=== PATIENT | male | born 1970 | race Two or more races ===

== ENCOUNTER 2016-08-18 14:35 | Emergency (ER) | payer MEDICAID ==
[~2016-08-18] VITALS: Ht 167.6 cm; Wt 77.1 kg
[~2016-08-18 14:35] MED LIST: ALBUTEROL SULF8.5 GM INH; HYDROCODON-ACE1 EAC4 ORAL; IBUPROFEN600 MG ORAL; LEVAQUIN500 MG PO
[2016-08-18 15:07] VITALS: BP 129/79
--- NOTE | 2016-08-18 15:16 | Emergency Room Report ---
History of Present Illness General Chief Complaint: Skin Rash/Abscess Source: Patient Present Illness HPI 46-year-old male presents emergency department complaining of itchy swollen rash x1 week. Patient states he has been applying, and motion and he has taken 3 tablets of hydroxyzine which was prescribed to him last year for itching. Patient states he believes that he may have come in contact with poison luis as he works in the [employer] yard and [place]. Patient states that rash is only confined to the upper extremities in the left side of his neck which seem to be exposed during work day. Patient denies wheezing, shortness of breath swelling of the lips or time. Patient states it she is his main concern and that he is constantly scratching at his skin is swollen. He denies discharge, increased temperature palpation, fevers, chills abdominal pain , joint pain or ill contacts. He states he is otherwise relatively healthy and does not take medication regularly. Denies CP, Palpitations, LOC, AMS, dizziness, Changes in Vision, Sensation, paresthesias, or a sudden severe headache. Allergies: Coded Allergies: PENICILLINS (Verified Allergy, 07/29/12) Patient History Past Medical History: see triage record Past Surgical History: none Pertinent Family History: none Immunizations: UTD Reviewed Nursing Documentation: PMH: Agreed, PSxH: Agreed Nursing Documentation-PM Past Medical History: No History, Except For Review of Systems All Other Systems: negative except mentioned in HPI Physical Exam Vital Signs Date Time Temp Pulse Resp B/P Pulse Ox O2 Delivery O2 Flow Rate FiO2 08/18/16 15:03 99.1 74 16 129/79 95 Room Air Sp02 EP Interpretation: reviewed, normal General Appearance: no apparent distress, alert, GCS 15, non-toxic Head: normocephalic, atraumatic Eyes: bilateral eye PERRL, bilateral eye normal inspection ENT: hearing grossly normal, normal pharynx, no angioedema, normal voice, other - no swelling of the lips or tongue, no oral lesions Neck: full range of motion, supple/symm/no masses Respiratory: chest non-tender, lungs clear, normal breath sounds, no wheezing, speaking full sentences Cardiovascular #1: regular rate, rhythm, no edema, normal capillary refill Musculoskeletal: back normal, gait/station normal, normal range of motion, non- tender Neurologic: alert, oriented x3, responsive, motor strength/tone normal, sensory intact, speech normal Psychiatric: judgement/insight normal, memory normal, mood/affect normal Skin: normal color, warm/dry, well hydrated, rash - swollen plaques and papules on the bilateral forearms, and on the left side of the neck, no crusting , no particular pattern, no increased temperature to palpation, obvious excoriations. Lymphatic: no adenopathy Medical Decision Making PA Attestation Dr. Wells is my supervising Physician whom patient management has been discussed with. Diagnostic Impression: Primary Impression: Rash and other nonspecific skin eruption ER Course Pt. presents to the ED c/o rash on bilateral UE and left side of neck x 1 week. - works in [employer], and in forest obtaining the lumbar. rash confined to exposed areas of skin. no relief from calamine lotion, and three tablets of hydroxyzine. Ddx considered but are not limited to cellulitis, scabies, shingles, varicella, dermatitis, urticaria, eczema, tinea Vital signs: are WNL, pt. is afebrile H&PE are most consistent with moderate contact dermatitis ORDERS: none required at this time, the diagnosis is clinical ED INTERVENTIONS: -Decadron IM 8mg -Benadryl IM 25mg -D/w pt. importance of avoidance from irritant, and follow up with pcp. pt. was given list of free/reduced cost health clinics to follow up at. d/w pt. to return to ED with worsening or new symptoms. DISCHARGE: At this time pt. is stable for d/c to home. Will provide printed patient care instructions, and any necessary prescriptions. Care plan and follow up instructions have been discussed with the patient prior to discharge. Last Vital Signs Date Time Temp Pulse Resp B/P Pulse Ox O2 Delivery O2 Flow Rate FiO2 08/18/16 15:07 99.1 16 129/79 95 Room Air 08/18/16 15:03 74 Disposition: HOME, SELF-CARE Condition: Stable Scripts Cetirizine Hcl* (ZYRTEC*) 10 Mg Tablet 10 MG ORAL DAILY, #30 TAB 0 Refills Prov: Jammie Hilton P.A. 08/18/16 Clobetasol Propionate/Emoll (CLOBETASOL EMOLLIENT 0.05% CRM) 15 Gm Cream..g. 15 GM TP BID, #15 GM 1 Refill Prov: Jammie Hilton 08/18/16 Diphenhydramine Hcl* (BENADRYL*) 25 Mg Capsule 25 MG ORAL Q6H Y for Itching, #20 CAP Prov: Jammie Hilton 08/18/16 Patient Instructions: Rash Additional Instructions: Take medications as directed. Follow up with PCP in 3-5 days Return sooner to ED if new symptoms occur, or current symptoms become worse. Do not drink alcohol, drive, or operate heavy machinery while taking benadryl as this may cause drowsiness. - Please note that this Emergency Department Report was dictated using [employer] security administrator technology software, occasionally this can lead to erroneous entry secondary to interpretation by the dictation equipment. Jammie Hilton August 18, 2016 15:16
[2016-08-18] MEDS ORDERED: Dexamethasone 4mg/ml vial IM ONE (15:30)
[2016-08-18] MEDS ORDERED: DiphenhydrAMINE 50mg/ml Inj IM ONE (15:30)
[2016-08-18] MEDS ORDERED: BENADRYL25 MG ORAL (15:32)
[2016-08-18] MEDS ORDERED: ZYRTEC10 MG ORAL (15:32)
[2016-08-18] MEDS ORDERED: CLOBETASOL EMOL15 GM TP (15:32)
== END 2016-08-18 16:02 | disposition home or self-care (01) ==
LOC: EMR 15:29
DX: R21 Rash and other nonspecific skin eruption (principal); Z88.0 Allergy status to penicillin
CPT/HCPCS: 96372; 99284; J1100; J1200

== ENCOUNTER 2016-12-30 19:11 | Emergency (ER) | payer MEDICAID ==
[~2016-12-30] VITALS: Ht 167.6 cm; Wt 77.1 kg
[~2016-12-30 19:11] MED LIST changes: +BENADRYL25 MG ORAL; +CLOBETASOL EMOL15 GM TP; +ZYRTEC10 MG ORAL
[2016-12-30 19:40] VITALS: BP 150/81
[2016-12-30 20:41] LABS: BASOPHILS % (AUTO) 0.9 % (0.0-2.0); EOSINOPHILS % (AUTO) 2.7 % (0.0-3.0); LYMPHOCYTES % (AUTO) 29.8 % (20.0-45.0); MEAN CORPUSCULAR HEMOGLOBIN 31.6 PG (27.0-31.0); MEAN CORPUSCULAR HGB CONC 34.9 G/DL (32.0-36.0); MEAN CORPUSCULAR VOLUME 90 FL (80-99); MEAN PLATELET VOLUME 6.2 FL (6.5-10.1); MONOCYTES % (AUTO) 5.5 % (1.0-10.0); NEUTROPHILS % (AUTO) 61.1 % (45.0-75.0); PLATELET COUNT 240 K/UL (150-450); RED BLOOD COUNT 4.99 M/UL (4.70-6.10); RED CELL DISTRIBUTION WIDTH 11.6 % (11.6-14.8); WHITE BLOOD COUNT 8.9 K/UL (4.8-10.8)
[2016-12-30 20:49] LABS: ALANINE AMINOTRANSFERASE 17 U/L (3-41); ALBUMIN/GLOBULIN RATIO 2.5 (1.0-2.7); ANION GAP 14 (5-15); ASPARTATE AMINO TRANSFERASE 12 U/L (5-40); CALCIUM 9.4 mg/dL (8.6-10.2); CARBON DIOXIDE 24 mEQ/L (20-30); CHLORIDE 102 mEQ/L (98-107); CREATININE 1.1 mg/dL (0.7-1.2); GLOMERULAR FILTRATION RATE > 60 mL/min (>60); HEMOLYSIS 11; POTASSIUM 3.9 mEQ/L (3.4-4.9); SODIUM 140 mEQ/L (135-145); TOTAL PROTEIN 7.7 g/dL (6.6-8.7)
[2016-12-30] MEDS ORDERED: ZANTAC150 MG ORAL (21:21)
--- NOTE | 2016-12-30 21:21 | Emergency Room Report ---
History of Present Illness General Chief Complaint: Abdominal Pain Source: Patient Present Illness HPI 46 YO Male presents to the ED c/o 5/10 in severity RUQ and epigastric abdominal pain x 1 week with previous episodes several months ago. Pt. had US imaging performed of the abdomen 6 months ago and reports he was told he has liver stones. Denies abdominal tenderness, reports pain usually occurs after eating food specifically breakfast, denies bloody stools, or black tarry stools. Denies N/V/F/C. describes pain as intermittent burning sensation. Denies cough or recent illness. Denies CP, Palpitations, LOC, AMS, dizziness, Changes in Vision, Sensation, paresthesias, or a sudden severe headache. Patient History Past Medical History: see triage record Past Surgical History: none Pertinent Family History: none Immunizations: UTD Reviewed Nursing Documentation: PMH: Agreed, PSxH: Agreed Nursing Documentation-PMH Past Medical History: No Stated History Review of Systems All Other Systems: negative except mentioned in HPI Physical Exam Vital Signs Date Time Temp Pulse Resp B/P (MAP) Pulse Ox O2 Delivery O2 Flow Rate FiO2 12/30/16 19:17 98.2 71 20 150/81 97 Room Air Sp02 EP Interpretation: reviewed, normal General Appearance: no apparent distress, alert, GCS 15, non-toxic Head: normocephalic, atraumatic Eyes: bilateral eye normal inspection, bilateral eye PERRL ENT: hearing grossly normal, normal voice Neck: full range of motion Respiratory: lungs clear, normal breath sounds, speaking full sentences Cardiovascular #1: regular rate, rhythm Gastrointestinal: normal inspection, normal bowel sounds, soft, non-distended, no hernia, no pulsatile mass, other - Negative [place] signs, Negative MacBurney 's sign, Negative Rosvigns Sign, Negative Psoas, No Peritoneal signs. has some mild epigastric tenderness with deep palpation only. Rectal: deferred Genitourinary: normal inspection, no CVA tenderness Musculoskeletal: back normal, gait/station normal, normal range of motion, non- tender Neurologic: alert, oriented x3, responsive, motor strength/tone normal, sensory intact, speech normal Psychiatric: judgement/insight normal, memory normal, mood/affect normal Skin: normal color, no rash, warm/dry, well hydrated Medical Decision Making PA Attestation Dr. Zavala is my supervising Physician whom patient management has been discussed with. Diagnostic Impression: Primary Impression: Abdominal pain Qualified Codes: R10.11 - Right upper quadrant pain Additional Impression: Gastritis Qualified Codes: K29.70 - Gastritis, unspecified, without bleeding ER Course 46 YO Male presents to the ED c/o 08/21 in severity RUQ and epigastric abdominal pain x 1 week with previous episodes several months ago. Pt. had US imaging performed of the abdomen 6 months ago and reports he was told he has liver stones. Denies abdominal tenderness, reports pain usually occurs after eating food specifically breakfast, denies bloody stools, or black tarry stools. Denies N/V/F/C. describes pain as intermittent burning sensation. Denies cough or recent illness. Denies CP, Palpitations, LOC, AMS, dizziness, Changes in Vision, Sensation, paresthesias, or a sudden severe headache. Ddx considered but are not limited to Diverticulitis, acute appy, diarrhea,UC, PUD, GE, pancreatitis, gallstone, hepatitis just to name a few. Vital signs: are WNL, pt. is afebrile H&PE are most consistent with gastritis or possible PUD, no evidence of bleeding. ORDERS: -CBC, CMP, lipase: are all WNL/ unremarkable I do not believe pt. requires imaging at this time, his abdominal exam was relatively benign, he is NAD and non-toxic in appearance ED INTERVENTIONS: -Zantac PO -Gi Cocktail -- D/w pt. the results of his lab work, d/w pt. that I do not suspect an acute emergent condition at this time, and I recommend he have close follow up with his PMD with possible GI referral as needed. Gave pt. return precautions for worsening or new symptoms. DISCHARGE: At this time pt. is stable for d/c to home. Will provide printed patient care instructions, and any necessary prescriptions. Care plan and follow up instructions have been discussed with the patient prior to discharge. Labs Test 12/30/16 19:45 White Blood Count 8.9 K/UL (4.8-10.8) Red Blood Count 4.99 M/UL (4.70-6.10) Hemoglobin 15.8 G/DL (14.2-18.0) Hematocrit 45.1 % (42.0-52.0) Mean Corpuscular Volume 90 FL (80-99) Mean Corpuscular Hemoglobin 31.6 PG (27.0-31.0) Mean Corpuscular Hemoglobin Concent 34.9 G/DL (32.0-36.0) Red Cell Distribution Width 11.6 % (11.6-14.8) Platelet Count 240 K/UL (150-450) Mean Platelet Volume 6.2 FL (6.5-10.1) Neutrophils (%) (Auto) 61.1 % (45.0-75.0) Lymphocytes (%) (Auto) 29.8 % (20.0-45.0) Monocytes (%) (Auto) 5.5 % (1.0-10.0) Eosinophils (%) (Auto) 2.7 % (0.0-3.0) Basophils (%) (Auto) 0.9 % (0.0-2.0) Sodium Level 140 mEQ/L (135-145) Potassium Level 3.9 mEQ/L (3.4-4.9) Chloride Level 102 mEQ/L (98-107) Carbon Dioxide Level 24 mEQ/L (20-30) Anion Gap 14 (5-15) Blood Urea Nitrogen 18 mg/dL (7-23) Creatinine 1.1 mg/dL (0.7-1.2) Estimat Glomerular Filtration Rate > 60 mL/min (>60) Glucose Level 129 mg/dL (74-106) Calcium Level 9.4 mg/dL (8.6-10.2) Total Bilirubin 0.4 mg/dL (0.0-1.2) Aspartate Amino Transf (AST/SGOT) 12 U/L (5-40) Alanine Aminotransferase (ALT/SGPT) 17 U/L (3-41) Alkaline Phosphatase 78 U/L (40-129) Total Protein 7.7 g/dL (6.6-8.7) Albumin 5.5 g/dL (3.5-5.2) Globulin 2.2 g/dL Albumin/Globulin Ratio 2.5 (1.0-2.7) Lipase 46 U/L (< 60) Last Vital Signs Date Time Temp Pulse Resp B/P (MAP) Pulse Ox O2 Delivery O2 Flow Rate FiO2 12/30/16 19:17 98.2 71 20 150/81 97 Room Air Disposition: HOME, SELF-CARE Condition: Stable Scripts Ranitidine Hcl* (ZANTAC*) 150 Mg Tablet 150 MG ORAL TWICE A DAY for 30 Days, #60 TAB Prov: Jammie Hilton 12/30/16 Referrals: NOT CHOSEN IPA/MD,REFERRING (PCP) Patient Instructions: Abdominal Pain, Adult, Gastritis, Adult Additional Instructions: Take medications as directed. Follow up with a Primary Care Provider in 3-5 days, even if your symptoms have resolved. GI EVALUATION IF SYMPTOMS PERSIST --Please review list of primary care clinics, if you do not already have a primary care provider Return sooner to ED if new symptoms occur, or current symptoms become worse. - Please note that this Emergency Department Report was dictated using [employer]Comput[employer] Technologiesuniform cap operator technology software, occasionally this can lead to erroneous entry secondary to interpretation by the dictation equipment. Jammie Hilton Dec 30, 2016 21:21
[2016-12-30 21:38] VITALS: BP 127/81
[2016-12-30 21:40] VITALS: BP 127/81
== END 2016-12-30 21:40 | disposition home or self-care (01) ==
LOC: EMR 19:30
DX: K29.70 Gastritis, unspecified, without bleeding (principal); R10.11 Right upper quadrant pain
CPT/HCPCS: 36415; 80053; 83690; 85025; 99284

== ENCOUNTER 2017-11-15 18:50 | Emergency (ER) | payer MEDICAID ==
[~2017-11-15] VITALS: Ht 167.6 cm; Wt 78.9 kg
[~2017-11-15 18:50] MED LIST changes: +ZANTAC150 MG ORAL
[2017-11-15 19:23] VITALS: BP 138/86
[2017-11-15] MEDS ORDERED: COLACE100 MG ORAL (19:38)
[2017-11-15] MEDS ORDERED: ANUSOL-HC25 MG RECTAL (19:38)
[2017-11-15 19:47] VITALS: BP 138/86
--- NOTE | 2017-11-15 21:14 | Emergency Room Report ---
History of Present Illness General Chief Complaint: Gastrointestinal Illness Source: Patient Present Illness HPI 47-year-old male presents ED complaining of blood in stool 5 days. Notes straining. Denies any abdominal pain. Denies any nausea or vomiting. Denies any blood thinners. No other aggravating relieving factors. Denies any other associated symptoms Allergies: Coded Allergies: No Known Allergies (Unverified , 11/15/17) Patient History Past Medical History: none Past Surgical History: none Pertinent Family History: none Social History: Denies: smoking, alcohol use, drug use Immunizations: UTD Reviewed Nursing Documentation: PMH: Agreed; PSxH: Agreed Nursing Documentation-PMH Past Medical History: No Stated History Review of Systems All Other Systems: negative except mentioned in HPI Physical Exam Vital Signs Date Time Temp Pulse Resp B/P (MAP) Pulse Ox O2 Delivery O2 Flow Rate FiO2 11/15/17 19:11 98.5 72 16 138/86 98 Room Air 98.4 Sp02 EP Interpretation: reviewed, normal General Appearance: no apparent distress, alert, GCS 15, non-toxic Head: normocephalic Eyes: bilateral eye normal inspection, bilateral eye PERRL ENT: normal ENT inspection Neck: normal inspection Respiratory: normal inspection Cardiovascular #1: normal inspection Gastrointestinal: normal bowel sounds, non tender, soft, non-distended, no guarding, no rebound Rectal: hemorrhoids Genitourinary: no CVA tenderness Musculoskeletal: normal inspection Neurologic: alert, oriented x3, responsive, motor strength/tone normal, sensory intact, speech normal Psychiatric: normal inspection Skin: normal inspection Lymphatic: normal inspection Medical Decision Making Diagnostic Impression: Primary Impression: Hemorrhoids Qualified Codes: K64.9 - Unspecified hemorrhoids ER Course Hospital Course 47-year-old male presenting to ED complaining of rectal bleeding, straining Differential diagnoses include: internal hemorrhoids, external hemorrhoids, anal fissure, constipation Clinical course Patient placed on stretcher in ED. After initial history physical exam reveals a male in no acute distress. Upon rectal exam there is fullness on rectal exam with tenderness consistent with an internal hemorrhoid. Discussed findings with patient. Patient is safe for discharge. We will prescribe stool softeners, suppository. Recommend close follow-up with PMD Diagnosis - hemorrhoids Stable and discharged to home with prescription for Anusol suppository, Colace. Instructed to take warm soaks in top 3 times a day for 10-15 minutes. Patient instructed to followup with PMD. Patient instructed to return to ED if symptoms recur or worsen Last Vital Signs Date Time Temp Pulse Resp B/P (MAP) Pulse Ox O2 Delivery O2 Flow Rate FiO2 11/15/17 19:47 98.4 72 16 138/86 98 Room Air 98.4 Status: improved Disposition: HOME, SELF-CARE Condition: Stable Scripts Hydrocortisone Acetate* (ANUSOL-HC*) 25 Mg Supp.rect 1 SUPP RECTAL TWICE A DAY for 10 Days, SUPP Prov: Daniel Trotter MD 11/15/17 Docusate Sodium* (COLACE*) 100 Mg Capsule 100 MG ORAL THREE TIMES A DAY, #30 CAP Prov: Daniel Tortter MD 11/15/17 Patient Instructions: Hemorrhoids, [id number] Daniel Trotter MD Nov 15, 2017 21:14
== END 2017-11-15 19:49 | disposition home or self-care (01) ==
LOC: EMR 19:20
DX: K64.9 Unspecified hemorrhoids (principal)
CPT/HCPCS: 99283

== ENCOUNTER 2018-08-06 19:55 | Emergency (ER) | payer MEDICAID ==
[~2018-08-06] VITALS: Ht 167.6 cm; Wt 74.8 kg
[~2018-08-06 19:55] MED LIST changes: +ANUSOL-HC25 MG RECTAL; +COLACE100 MG ORAL
[2018-08-06 20:07] VITALS: BP 135/82
--- NOTE | 2018-08-06 20:24 | Emergency Room Report ---
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 Pt. denies pain. Patient states that he had plants slung over his left shoulder. Patient reports severe itching which is minimally responsive to Benadryl. Pt. denies fevers, chills or swollen tender lymph nodes. Denies lesions/rashes elsewhere on the body. Denies new medications or body washes or creams. Denies swelling of the lips, tongue , throat or airway. Denies wheezing, or shortness of breath. Denies recent travel, recent illness or ill contacts. denies blisters, oral lesions, or sloughing of the skin Allergies: Coded Allergies: No Known Allergies (Unverified , 08/06/18) Patient History Past Medical History: see triage record Past Surgical History: none Pertinent Family History: none Reviewed Nursing Documentation: PMH: Agreed; PSxH: Agreed Nursing Documentation-PMH Past Medical History: No Stated History Review of Systems All Other Systems: negative except mentioned in HPI Physical Exam Vital Signs Date Time Temp Pulse Resp B/P (MAP) Pulse Ox O2 Delivery O2 Flow Rate FiO2 08/06/18 19:58 98.2 74 16 96 Sp02 EP Interpretation: reviewed, normal General Appearance: no apparent distress, alert, GCS 15, non-toxic Head: normocephalic, atraumatic Eyes: bilateral eye normal inspection, bilateral eye PERRL ENT: hearing grossly normal, no angioedema, normal voice, other - no stridor Neck: full range of motion Respiratory: chest non-tender, lungs clear, normal breath sounds, no wheezing, speaking full sentences Cardiovascular #1: regular rate, rhythm Musculoskeletal: back normal, gait/station normal, normal range of motion, non- tender Neurologic: alert, oriented x3, responsive, motor strength/tone normal, sensory intact, speech normal, grossly normal Psychiatric: judgement/insight normal Skin: normal color, warm/dry, well hydrated, rash - erythematous confluent plaques to the left side of the neck, face and left wrist. no blisters or vessicles, some warmth noted, no sloughing of the skin, not tender to the touch. Lymphatic: no adenopathy Medical Decision Making PA Attestation Dr. flores is my supervising Physician whom patient management has been discussed with. 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 Pt. denies pain. Patient states that he had plants slung over his left shoulder. Patient reports severe itching which is minimally responsive to Benadryl. Pt. denies fevers, chills or swollen tender lymph nodes. Denies lesions/rashes elsewhere on the body. Denies new medications or body washes or creams. Denies swelling of the lips, tongue , throat or airway. Denies wheezing, or shortness of breath. Denies recent travel, recent illness or ill contacts. denies blisters, oral lesions, or sloughing of the skin Ddx considered but are not limited to cellulitis, scabies, shingles, varicella, dermatitis, urticaria, eczema, tinea, viral exanthem, SJS Vital signs: are WNL, pt. is afebrile H&PE are most consistent with contact dermatitis- poison [place]. not suspicious for shingles or secondary cellulitis at this time. No evidence to suggest impending airway compromise or anaphylaxis. ORDERS: none required at this time, the diagnosis is clinical ED INTERVENTIONS: Prednisone 60mg PO DISCHARGE: At this time pt. is stable for d/c to home. Will provide printed patient care instructions, and any necessary prescriptions. Care plan and follow up instructions have been discussed with the patient prior to discharge. Last Vital Signs Date Time Temp Pulse Resp B/P (MAP) Pulse Ox O2 Delivery O2 Flow Rate FiO2 08/06/18 19:58 98.2 74 16 96 Disposition: HOME, SELF-CARE Condition: Stable Scripts Bacitracin/Polymyxin B Sulfate (BACITRACIN-POLYMYXIN OINTMENT) 28.35 Gm Oint...g. 1 APPLIC TP BID, #28.3 GM Prov: Jammie Hilton 08/06/18 Prednisone* (PREDNISONE*) 20 Mg Tablet 40 MG ORAL DAILY for 5 Days, #10 TAB Prov: Jammie Hilton 08/06/18 Hydroxyzine Pamoate* (VISTARIL*) 50 Mg Capsule 50 MG ORAL EVERY 6 HOURS, #20 TAB 0 Refills Prov: Jammie Hilton 08/06/18 Referrals: NON PHYSICIAN (PCP) Departure Forms: Return to Work Return to Work Date: Aug 07, 2018 Other Restrictions: avoid excessive heat/ sunlight until symptoms resolve. Return to Full Activity: August 13, 2018 Patient Instructions: Poison [place] Dermatitis, Rash Additional Instructions: Take medications as directed. Follow up with a Primary Care Provider in 3-5 days, even if your symptoms have resolved. --Please review list of primary care clinics, if you do not already have a primary care provider Return sooner to ED if new symptoms occur, or current symptoms become worse. Do not drink alcohol, drive, or operate heavy machinery while taking hydroxyzine as this may cause drowsiness. - Please note that this Emergency Department Report was dictated using [employer] technology software, occasionally this can lead to erroneous entry secondary to interpretation by the dictation equipment. Jammie Hilton Aug 06, 2018 20:24
[2018-08-06] MEDS ORDERED: BACITRACIN-P28.35 GM TP (20:25)
[2018-08-06] MEDS ORDERED: PREDNISONE20 MG ORAL (20:25)
[2018-08-06] MEDS ORDERED: VISTARIL50 MG ORAL (20:25)
[2018-08-06 20:39] VITALS: BP 135/82
== END 2018-08-06 20:39 | disposition home or self-care (01) ==
LOC: EMR 20:14
DX: R21 Rash and other nonspecific skin eruption (principal)
CPT/HCPCS: 99282; J7512